=== PATIENT | female | born 1955 | race Caucasian/White ===

== ENCOUNTER → 2021-02-25 | Outpatient (CLI) | payer BC | LOC: EXRD 14:09 | DX: M85.88 Other specified disorders of bone density and structure, other site (principal) | CPT/HCPCS: 77080 ==

== ENCOUNTER → 2021-08-28 | Outpatient (CLI) | payer BC | LOC: EROP 14:02 | DX: Z20.822 Contact with and (suspected) exposure to COVID-19 (principal) | CPT/HCPCS: U0002 ==

== ENCOUNTER → 2022-04-01 | Outpatient (CLI) | payer BC | LOC: KOH-I 10:17 | DX: R10.11 Right upper quadrant pain (principal) | CPT/HCPCS: 74176 ==

== ENCOUNTER → 2022-05-06 | Outpatient (CLI) | payer BC ==
[~2022-05-06] MED LIST: ADVIL200 M1 PO; LEVOTHYROXINE50 MCG PO; LOW DOSE ASPIRI81 MG PO; METOPROLOL SUCC25 MG PO; VALSARTAN80 MG PO; ZYRTEC10 MG PO
[2022-05-06 11:12] LABS: HEMOGLOBIN 13.3 gm/dl (12.3-15.3); RED BLOOD COUNT 4.09 M/UL (4.00-5.10); WHITE BLOOD COUNT 5.4 K/UL (4.5-11.0)
[2022-05-06 11:26] LABS: BUN/CREATININE RATIO 23 (0-10)
== END ==
LOC: EDSTATUS 10:00 → OPSV2 10:00
PROVIDERS: Orthopaedic Surgery
DX: Z01.818 Encounter for other preprocedural examination (principal); R94.31 Abnormal electrocardiogram [ECG] [EKG]; M16.11 Unilateral primary osteoarthritis, right hip
CPT/HCPCS: 71046; 80048; 85025; 85610; 85730; 93005

== ENCOUNTER → 2022-05-24 | Outpatient (CLI) | payer BC ==
[~2022-05-24] MED LIST changes: -ADVIL200 M1 PO; +ADVIL200 MG PO; +CRESTOR5 MG PO; +CYCLOBENZAPRINE10 MG PO; +ELIQUIS2.5 MG PO; +PERCOCET 7.5-31 EACH PO; +PROBIOTIC1 EAC1 PO; +VITAMIN B-121000 MC3 PO; +VITAMIN C1000 MG PO; +VITAMIN D31250 MCG PO; +ZOFRAN 4 MG TAB4 MG PO
[2022-05-24 10:13] LABS: BUN/CREATININE RATIO 25 (0-10)
== END ==
LOC: LAB 09:01
PROVIDERS: Orthopaedic Surgery
DX: Z01.812 Encounter for preprocedural laboratory examination (principal); M17.11 Unilateral primary osteoarthritis, right knee
CPT/HCPCS: 36415; 80048; 86850; 86900; 86901

== ENCOUNTER → 2022-05-25 | Day surgery (SDC) | payer BC ==
[~2022-05-25] VITALS: Ht 167.6 cm; Wt 72.6 kg
== END | disposition home or self-care (01) ==
LOC: OR 06:02
DX: M17.11 Unilateral primary osteoarthritis, right knee (principal); M21.061 Valgus deformity, not elsewhere classified, right knee; G89.18 Other acute postprocedural pain; I10 Essential (primary) hypertension; E07.9 Disorder of thyroid, unspecified; G47.33 Obstructive sleep apnea (adult) (pediatric); Z79.01 Long term (current) use of anticoagulants; Z79.82 Long term (current) use of aspirin; Z79.899 Other long term (current) drug therapy
CPT/HCPCS: 73560; 97161; 97166; C1713; C1776; J0171; J0690; J1100; J1885; J2001; J2274; J2370; J2405; J2704; J2795; J3010; J3370; J3475